=== PATIENT | female | born 1965 | race American Indian/Alaskan Native ===

== ENCOUNTER 2019-10-14 10:06 | Emergency (ER) | payer SELFPAY ==
[2019-10-14 10:47] VITALS: BP 120/79
--- NOTE | 2019-10-14 11:31 | Emergency Department Report ---
Chief Complaint: Eye Problems Stated Complaint: LFT EYE INFECTED 3DAYS Time Seen by Provider: 10/14/19 11:01 - HPI History of Present Illness: 54-year-old -[place] female with no past medical history presents to the emergency room for left eye irritation and drainage x3 days. Patient states that her eye is sore. Patient denies any blurred vision but does report that it itches. Patient denies any sneezing coughing runny nose or headache. - Exam Vital Signs: Vital Signs 10/14/19 10:39 Temperature 97.9 F Pulse Rate 73 Respiratory 18 Rate Blood Pressure 120/79 O2 Sat by Pulse 98 Oximetry Physical Exam: Alert and oriented x3 no acute distress Left eye sclera mild redness conjunctive appears to have a lesion with erythematous mild edema test. Patient is amatory without difficulties. MSE screening note: Focused history and physical exam performed. Due to findings the following was ordered: 54-year-old -[place] female with no past medical history presents to the emergency room for left eye irritation and drainage x3 days. Patient states that her eye is sore. Patient denies any blurred vision but does report that it itches. Patient denies any sneezing coughing runny nose or headache. Recommend patient to follow-up in urgent care or cleaning maid. She can also follow-up with [facility] or Dr. Lubin ED Disposition for MSE Disposition: MED SCREENING EXAM-LEFT Is pt being admited?: No Does the pt Need Aspirin: No Condition: Stable Additional Instructions: You can try [id number] Zaditor or Pataday eyedrops daily. Recommend to follow-up with a cleaning maid or primary care provider. Referrals: PRIMARY CARE, [Primary Care Provider] - 3-5 Days SRINI PAULINO MD [Staff Physician] - 3-5 Days MICAELA DOMINGUEZ MD [Staff Physician] - 3-5 Days [facility] [Provider Group] - 3-5 Days [facility] [Provider Group] - 3-5 Days [facility] [Provider Group] - 3-5 Days
== END 2019-10-14 11:40 | disposition left against medical advice (07) ==
LOC: ED 10:06
DX: H57.89 Other specified disorders of eye and adnexa (principal)
CPT/HCPCS: 99282